=== PATIENT | female | born 1990 | race Caucasian/White ===

== ENCOUNTER 2022-05-21 09:27 | Emergency (ER) | payer SELFPAY ==
[2022-05-21 10:18] LABS: #Basophils 0.1 10x3/uL (0.0-0.2); #Eosinphils 0.2 10x3/uL (0.0-0.5); #Monocytes 0.4 10x3/uL (0.0-1.1); %Basophils 0.9 % (0.0-2.0); %Eosinophils 2.9 % (0.0-6.0); %Lymphocytes 29.8 % (18.0-47.0); %Monocytes 6.1 % (0.0-10.0); %Neutrophils 60.1 % (40.0-75.0); Hemoglobin 10.6 g/dL (12.0-15.5); Mean Corpuscular HGB CONC 31.5 g/dL (32.0-36.0); Mean Corpuscular Hemoglobin 24.6 pg (27.0-33.0); Platelet Count 392 10x3/uL (150-450); RBC Distribution Width 16.1 % (11.5-14.5); Red Blood Cell (RBC) Count 4.31 10x6/uL (3.90-5.03); White Blood Cell (WBC) Count 6.6 10x3/uL (3.5-10.5)
[2022-05-21 10:21] LABS: BHCG - Serum POSITIVE (NEGATIVE); Pregs Control Background? CLEAR/WHITE (CLR/WHITE); Pregs Control Bar Appear? YES (CONTROL BAR)
[2022-05-21 10:32] LABS: ALT (SGPT) 11 U/L (8-55); AST (SGOT) 10 U/L (5-34); Albumin 3.9 g/dL (3.5-5.0); Alkaline Phosphatase 87 U/L (40-110); Anion Gap 14 mmol/L (10-20); BUN (Urea Nitrogen) 16 mg/dL (7.0-18.7); Bilirubin, Total 0.2 mg/dL (0.2-1.2); Calc. Creatinine Clearance 0 mL/min (70-130); Calcium 9.3 mg/dL (7.8-10.44); Carbon Dioxide 23 mmol/L (22-29); Chloride 104 mmol/L (98-107); Estimated GFR 117; Globulin 3.2 g/dL (2.4-3.5); Glucose 292 mg/dL (70-105); Potassium 4.5 mmol/L (3.5-5.1); Protein, Total 7.1 g/dL (6.0-8.3); Sodium 136 mmol/L (136-145)
[2022-05-21 10:48] LABS: HCG, Total Quant 1080.76 mIU/mL (See Ranges); Thyroid Stimulating Hormone 3.8217 uIU/mL (0.35-4.94)
== END 2022-05-21 12:53 | disposition home or self-care (01) ==
LOC: CSHERS 09:27
DX: O20.0 Threatened abortion (principal); O24.011 Pre-existing type 1 diabetes mellitus, in pregnancy, first trimester; Z3A.01 Less than 8 weeks gestation of pregnancy
CPT/HCPCS: 36415; 76856; 80053; 84443; 84702; 84703; 85025; 86900; 86901

== ENCOUNTER 2022-05-23 07:50 | Emergency (ER) | payer SELFPAY | END 2022-05-23 10:15 | disposition home or self-care (01) | LOC: CSHERS 07:50 | DX: O03.9 Complete or unspecified spontaneous abortion without complication (principal); E10.9 Type 1 diabetes mellitus without complications | CPT/HCPCS: 84702 ==